=== PATIENT | female | born 1985 ===

== ENCOUNTER → 2018-12-15 | Outpatient (CLI) | payer OTHER | END | disposition home or self-care (01) | LOC: PRENATAL 13:30 | DX: O28.1 Abnormal biochemical finding on antenatal screening of mother (principal); O35.3XX0 Maternal care for (suspected) damage to fetus from viral disease in mother, not applicable or unspecified ==

== ENCOUNTER 2019-02-23 17:29 | Emergency (ER) | payer OTHER ==
[~2019-02-23] VITALS: Ht 170.2 cm; Wt 56.7 kg
[2019-02-23] MEDS ORDERED: PRENATAL + DHA1 EAC1 (17:48)
== END 2019-02-23 20:09 | disposition home or self-care (01) ==
LOC: ER 17:29
DX: R50.9 Fever, unspecified (principal); N93.8 Other specified abnormal uterine and vaginal bleeding; B96.0 Mycoplasma pneumoniae [M. pneumoniae] as the cause of diseases classified elsewhere

== ENCOUNTER 2019-04-03 14:47 | Inpatient (IN) | payer OTHER ==
[~2019-04-03] VITALS: Ht 170.2 cm; Wt 3.2 kg
[~2019-04-03 14:47] MED LIST: PRENATAL + DHA1 EAC1
[2019-04-06] MEDS ORDERED: Tylenol #3 PO (09:20)
== END 2019-04-06 15:03 | disposition home or self-care (01) | DRG 788 ==
LOC: OB/GYN 14:47 → LDR 14:47 → OB/GYN 20:21
PROVIDERS: ADMIT Obstetrics & Gynecology
PROC: 4A1HXCZ Monitoring of Products of Conception, Cardiac Rate, External Approach (ICD-10-PCS; 2019-04-03)
PROC: 10D00Z1 Extraction of Products of Conception, Low, Open Approach (ICD-10-PCS; principal; 2019-04-03 18:30)
DX: O82 Encounter for cesarean delivery without indication (principal); O76 Abnormality in fetal heart rate and rhythm complicating labor and delivery; Z3A.38 38 weeks gestation of pregnancy; Z37.0 Single live birth

== ENCOUNTER 2022-06-30 08:05 | Outpatient (CLI) | payer OTHER ==
[~2022-06-30 08:05] MED LIST changes: +Tylenol #3 PO
== END 2022-06-30 09:00 | disposition home or self-care (01) ==
LOC: PRENATAL 08:05
PROVIDERS: ATTEND Obstetrics & Gynecology Maternal & Fetal Medicine
DX: O35.9XX0 Maternal care for (suspected) fetal abnormality and damage, unspecified, not applicable or unspecified (principal); O35.3XX0 Maternal care for (suspected) damage to fetus from viral disease in mother, not applicable or unspecified; O34.219 Maternal care for unspecified type scar from previous cesarean delivery; Z3A.21 21 weeks gestation of pregnancy